=== PATIENT | female | born 1970 | race Native Hawaiian/Other Pacific Islander ===

== ENCOUNTER 2018-11-27 02:43 | Emergency (ER) | payer MEDICARE, SELFPAY ==
[2018-11-27] VITALS (9 sets, daily range): BP systolic 165–198; BP diastolic 90–112; PULSE 74–106; RESP 11–24; TEMP 36.2; O2SAT 96–99; BMI 26.4
--- NOTE | 2018-11-27 02:55 | DI.RAD.S_ITS ---
PROCEDURE: XR CHEST 1V INDICATIONS: chest pain TECHNIQUE: One view of the chest was acquired. COMPARISON: None. FINDINGS: Surgical changes and devices: None. Lungs and pleura: Lungs are clear. No pleural effusions or pneumothorax. Mediastinum: Mediastinal contours appear normal. Heart size is normal. Bones and chest wall: No suspicious bony lesions. Overlying soft tissues appear unremarkable. IMPRESSION: No acute disease. Dictated by: Noman Cordoba M.D. on 11/27/2018 at 8:51 Approved by: Noman Cordoba M.D. on 11/27/2018 at 8:51
[2018-11-27] MEDS: ASPIRIN 81 MG TAB 324 MG PO (03:02)
[2018-11-27] MEDS: NITROGLYCERIN 0.4 MG SL TAB SL ×2 (03:04→03:25)
[2018-11-27] MEDS: SODIUM CHLORIDE 0.9% 1,000 ML 150 ML IV (03:05)
--- NOTE | 2018-11-27 03:13 | ED_ITS ---
HPI - Chest Pain General Chief Complaint: Chest Pain Stated Complaint: states chest pain off and on, nausea for 8 eights Time Seen by Provider: 11/27/18 02:49 Source: patient Mode of arrival: ambulatory Limitations: no limitations History of Present Illness HPI narrative: 48-year-old female nonsmoker with history of hypertension diabetes presents with a chief complaint of chest pain which started while at rest earlier today, at about noon. She states that her pain is largely sharp and stabbing and made worse with palpation, range of motion or deep breaths. She has had nausea but denies any vomiting. She admits to some hacking cough but no fever. She has had the occasional chills, primarily when she is nauseated. She is not dizzy or weak or lightheaded. She denies any recent long distance travel, exposure to ill persons or similar circumstances. She was recently admitted at an outside facility for abdominal complaints MD complaint: chest pain Onset (ago): hour(s) Duration: intermittent Onset: during rest Pain location: left chest Severity: mild Severity scale (1-10): 4 Quality: sharp Relieving factors: rest Exacerbating factors: inspiration, palpation and movement Associated symptoms: nausea and cough Treatments prior to arrival chest pain: none Related Data On Oral Contraceptives: No Previous Rx's Medication Instructions Recorded hydrocodone-acetaminophen 1 tab PO Q4-6H PRN #10 tab 11/27/18 ondansetron 4 mg PO TID-QID PRN #10 tab 11/27/18 Allergies Allergy/AdvReac Type Severity Reaction Status Date / Time diphenhydramine Allergy Verified 11/27/18 02:57 [From Benadryl Allergy] Review of Systems Constitutional Reports chills, Denies fever(s), Denies lethargy and Denies weakness Eyes Denies change in vision, Denies eye discharge, Denies irritation and Denies loss of vision ENT Ears, Nose, Mouth, and Throat: Denies change in voice, Denies neck pain and Denies sore throat Cardiovascular Reports chest pain, Reports chest pain at rest, Denies irregular heart rhythm, Denies lightheadedness, Denies palpitations, Denies dyspnea, Denies dyspnea on exertion and Denies orthopnea Respiratory Reports cough, Reports pain on inspiration, Reports pain with cough, Denies dyspnea, Denies dyspnea on exertion and Denies wheezing Gastrointestinal Gastrointestinal: Denies abdominal pain, Denies change in bowel habits, Denies diarrhea, Reports nausea and Denies vomiting Genitourinary Denies hematuria, Denies flank pain, Denies urinary incontinence and Denies urinary urgency Musculoskeletal Denies neck pain Integumentary/Breasts Denies pruritus, Denies erythema, Denies rash and Denies wounds Neurologic Denies confusion, Denies loss of vision and Denies weakness Psychiatric Denies anxiety, Denies confusion, Denies depression, Denies homicidal ideation and Denies suicidal ideation Endocrine Denies palpitations Hematologic/Lymphatic Denies easy bruising Allergic/Immunologic Denies wheezing PFSH Social History Smoking Status: Never smoker Social History Smoking Status: Never smoker Exam Narrative Exam Narrative: GENERAL: 48-year-old female is resting comfortably, has a bronchospastic type cough which seems to exacerbate her symptoms, in mild distress HEAD: Atraumatic. Normocephalic. No temporal or scalp tenderness. EYES: Pupils equal round and reactive. Extraocular motions intact. No scleral icterus. No injection or drainage. ENT: Nose without bleeding, purulent drainage or septal hematoma. Throat without erythema, tonsillar hypertrophy or exudate. Uvula midline. Airway patent. NECK: Trachea midline. No JVD or lymphadenopathy. Supple, nontender, no meningeal signs. CARDIOVASCULAR: repeatable sharp and stabbing pain to palpation of left anterior chest. Regular rate and rhythm without murmurs, gallops, or rubs. RESPIRATORY: Clear to auscultation. Breath sounds equal bilaterally. No wheezes, rales, or rhonchi. GASTROINTESTINAL: Abdomen soft, epigastric pain, nondistended. No hepato- splenomegaly, or palpable masses. No guarding. EXTREMITIES: No clubbing, cyanosis, or edema. No joint tenderness, effusion, or edema noted. BACK: Nontender without deformity or crepitance. No flank tenderness. NEURO: AOx3. SKIN: No rash or erythema. Initial Vital Signs Initial Vital Signs: Vital Signs Temperature 97.2 F L 11/27/18 02:55 Pulse Rate 83 11/27/18 02:55 Respiratory Rate 11 L 11/27/18 02:55 Blood Pressure 198/98 H 11/27/18 02:55 Pulse Oximetry 99 11/27/18 02:55 Scores HEART Score Heart Score history: Slightly Suspicious Heart Score EKG: Normal Heart Score Age: 45-64 years old Heart Score risk factors: 1-2 risk factors Heart Score troponin: < or = to normal limit Heart Score Total: 2 Course Orders Ordered: ED Orders 11/27/18 02:55 XR chest 1V Stat EKG-12 Lead Stat 11/27/18 03:17 Complete Blood Count AUTO DIFF Stat Comprehensive Metabolic Panel Stat Lipase Stat Troponin & CK Cardiac Panel Stat 11/27/18 03:50 US abdomen complete Stat Sodium Chloride (Normal Saline 0.9%) 1,000 mls @ 150 mls/hr IV CONT JAILENE Last Admin: 11/27/18 03:05 Dose: 150 mls/hr Nitroglycerin (Nitrostat) 0.4 mg SL [id number] PRN PRN Reason: Chest Pain Last Admin: 11/27/18 03:25 Dose: 0.4 mg Admin: 11/27/18 03:04 Dose: 0.4 mg Discontinued Medications Hydrocodone Bitart/Acetaminophen (Vicodin Prepack) 1 bottle MISC SEEINSTR ONE Stop: 11/27/18 05:23 Aspirin (Aspirin Chew) 324 mg PO NOW ONE Stop: 11/27/18 02:56 Last Admin: 11/27/18 03:02 Dose: 324 mg Ketorolac Tromethamine (Toradol) 15 mg IV NOW ONE Stop: 11/27/18 03:41 Last Admin: 11/27/18 03:48 Dose: 15 mg Ondansetron HCl (Zofran) 4 mg IV NOW ONE Stop: 11/27/18 03:22 Last Admin: 11/27/18 03:24 Dose: 4 mg Ondansetron HCl (Zofran Odt Prepack) 1 bottle MISC SEEINSTR ONE Stop: 11/27/18 05:23 Vital Signs - 8 hr 11/27/18 02:55 11/27/18 03:04 11/27/18 03:25 Temperature 97.2 F L Pulse Rate 83 106 H 106 H Respiratory Rate 11 L Blood Pressure 198/98 H 186/112 H 181/100 H Blood Pressure [Left Arm] Pulse Oximetry 99 11/27/18 03:27 11/27/18 04:00 11/27/18 04:31 Temperature Pulse Rate 99 H 87 85 Respiratory Rate 16 23 Blood Pressure 166/104 H Blood Pressure [Left Arm] 172/93 H 189/107 H Pulse Oximetry 99 99 11/27/18 05:01 Temperature Pulse Rate 82 Respiratory Rate 24 Blood Pressure Blood Pressure [Left Arm] 196/101 H Pulse Oximetry 96 MDM - Chest Pain Medical Records Data Attestation: I reviewed the patient's medical records. Lab Data Result diagrams: 11/27/18 03:17 11/27/18 03:17 Lab Results 11/27/18 11/27/18 Range/Units 03:17 03:17 WBC 10.1 (4.5-11.0) X10^3/uL RBC 4.70 (4.0-5.2) X10^6/uL Hgb 14.4 (12.0-16.0) g/dL Hct 42.3 (36-46) % MCV 90.1 (80-100) fL MCH 30.6 (26-34) PG MCHC 34.0 (30-36) % RDW 13.1 (11.6-14.8) % Plt Count 304 (150-400) X10^3/uL Neut % (Auto) 67.2 (50-75) % Lymph % (Auto) 24.6 L (25-40) % Treasure % (Auto) 3.6 (3-14) % Eos % (Auto) 3.5 (2-4) % Baso % (Auto) 1.1 (0-2) % Neut # (Auto) 6800 (9558-5754) /uL Lymph # (Auto) 2500 (2700-5736) /uL Treasure # (Auto) 400 (0-900) /uL Eos # (Auto) 400 (0-450) /uL Baso # (Auto) 100 (0-100) /uL Sodium 139 (137-145) mmol/L Potassium 3.5 (3.4-5.1) mmol/L Chloride 105 (98-107) mmol/L Carbon Dioxide 22 (22-32) mmol/L BUN 16 (7-17) mg/dL Creatinine 0.60 (0.52-1.04) mg/dL Estimated GFR > 60.0 (>60) mL/min BUN/Creatinine Ratio 26.7 H (6-22) Glucose 231 H (70-100) mg/dL Calcium 9.1 (8.4-10.2) mg/dL Total Bilirubin 0.7 (0.2-1.3) mg/dL AST 69 H (14-36) IU/L ALT 165 H (9-52) IU/L Alkaline Phosphatase 141 H (38-126) U/L Total Creatine Kinase < 20 L (30-135) U/L CK-MB (CK-2) TNP CK-MB (CK-2) Rel Index TNP Troponin I < 0.012 (0.01-0.034) ng/mL Total Protein 7.7 (6.3-8.2) g/dL Albumin 4.3 (3.5-5.0) g/dL Globulin 3.4 (1.7-4.1) g/dL Albumin/Globulin Ratio 1.3 (1.0-2.8) Lipase 428 H (23-300) U/L ECG Data Attestation: I personally reviewed and interpreted this ECG as follows: Prior ECG tracings: not available for review Interpretation: EKG is normal sinus rhythm rate [81 ] and free of any signs of ischemia or ectopy. No ST segmental elevation or depression. No T wave inversions MDM Narrative Medical decision making narrative: Patient presents with sharp and stabbing anterior chest and upper abdomen pain that radiates to her back. She has not had much of an appetite and has felt nauseated. Her EKG is unremarkable, story is of a nonischemic picture and troponin is unremarkable over 12 hr into the episode. Cardiac etiology considered but thought much less likely. The patient has elevated lipase but not to the level that would suggest admission is warranted. Additionally there are stones noted on ultrasound but no indication coli cystitis which would require surgical intervention. I spent a significant amount of time at the bedside discussing return precautions, lab findings, imaging findings and likely causes of the patient's symptoms. She has had her questions answered to her apparent satisfaction. She understands her diagnosis and how to proceed. Discharge Plan Departure Patient Disposition: Home Clinical Impression: Biliary colic Acute pancreatitis Qualifiers: Pancreatitis type: other Acute pancreatitis complication: unspecified Qualified Code(s): K85.80 - Other acute pancreatitis without necrosis or infection Instructions: Acute Pancreatitis, DI for Atypical Chest Pain, DI for Biliary Colic Activity Restrictions/Additional Instructions: *You have been diagnosed with [ atypical chest pain, mild pancreatitis, gallstones ] *What to do: *Take medications as directed *Follow up with your primary care provider in 2-3 days, call for an appointment. Let them know you were seen in the Emergency Department and that we ask that you be seen in follow up *Return to ER if you should have any new, worsening or concerning symptoms 1. Drink plenty of fluids with frequent small sips. 2. For the next 24 hours a clear liquid diet is advised. After that please employ a brat diet which would include bananas, rice, apples, toast. Prescriptions: New hydrocodone-acetaminophen 5-325 mg tablet 1 tab PO Q4-6H PRN (Reason: pain) Qty: 10 RF: 0 ondansetron 4 mg tablet,disintegrating 4 mg PO TID-QID PRN (Reason: nausea and vomiting) Qty: 10 RF: 0 Referrals: Shyann Pereira MD [Physician] -
[2018-11-27] MEDS: ONDANSETRON 4 MG/2 ML INJ IV (03:24)
[2018-11-27 03:27] LABS: Add Manual Diff / Slide Review NO; Basophils Absolute Auto 100 /uL (0-100); Basophils Percent Auto 1.1 % (0-2); Eosinophils Absolute Auto 400 /uL (0-450); Eosinophils Percent Auto 3.5 % (2-4); Hematocrit 42.3 % (36-46); Hemoglobin 14.4 g/dL (12.0-16.0); Lymphocytes Absolute Auto 2500 /uL (1100-4500); Lymphocytes Percent Auto 24.6 % (25-40); Mean Corpuscular Hemoglobin 30.6 PG (26-34); Mean Corpuscular Volume 90.1 fL (80-100); Monocytes Absolute Auto 400 /uL (0-900); Monocytes Percent Auto 3.6 % (3-14); Neutrophils Absolute Auto 6800 /uL (1500-7000); Neutrophils Percent Auto 67.2 % (50-75); Platelet Count 304 X10^3/uL (150-400); Red Cell Distribution Width 13.1 % (11.6-14.8); White Blood Cell Count 10.1 X10^3/uL (4.5-11.0)
--- NOTE | 2018-11-27 03:37 | PC.NURSE ---
provider notified of no change of patient condition after nitro x2. Provider aknowledged, order to hold 3rd nitro.
[2018-11-27 03:40] LABS: Alanine Aminotransferase 165 IU/L (9-52); Albumin 4.3 g/dL (3.5-5.0); Albumin Globulin Ratio 1.3 (1.0-2.8); Alkaline Phosphatase 141 U/L (38-126); Aspartate Aminotransferase 69 IU/L (14-36); BUN Creatinine Ratio 26.7 (6-22); Bilirubin Total 0.7 mg/dL (0.2-1.3); Blood Urea Nitrogen 16 mg/dL (7-17); Calcium 9.1 mg/dL (8.4-10.2); Carbon Dioxide 22 mmol/L (22-32); Chloride 105 mmol/L (98-107); Creatine Kinase < 20 U/L (30-135); Estimated Glomerular Filt Rate > 60.0 mL/min (>60); Globulin 3.4 g/dL (1.7-4.1); Glucose 231 mg/dL (70-100); HEMOLYSIS < 15 (0-50); Lipase 428 U/L (23-300); Potassium 3.5 mmol/L (3.4-5.1); Sodium 139 mmol/L (137-145); Total Protein 7.7 g/dL (6.3-8.2)
[2018-11-27] MEDS: KETOROLAC 60 MG/2 ML VIAL 15 MG IV (03:48)
--- NOTE | 2018-11-27 03:50 | DI.US.S_ITS ---
PROCEDURE: US ABDOMEN COMPLETE INDICATIONS: EPIGASTRIC PAIN, ELEVATED ENZYMES TECHNIQUE: Real-time scanning was performed of the abdominal and retroperitoneal organs, with image documentation. COMPARISON: None. FINDINGS: Liver: Liver is normal in size and homogeneous in echotexture. Liver has a diffusely increased echotexture which typically represents fatty infiltration; however, finding is nonspecific and other etiologies including hepatic cirrhosis can have a similar appearance. Please correlate with clinical and laboratory findings. There is a hypoechoic area in the liver adjacent to the gallbladder that measures 1.9 x 0.6 x 1.3 cm which may represent focal fatty sparing. Gallbladder: 1.4 x 1.2 x 1.3 cm mobile gallstone noted in the gallbladder lumen. No gallbladder wall thickening with wall measuring 2 mm. No pericholecystic fluid. No sonographic Torres sign. Biliary ducts: Intrahepatic bile ducts are non-dilated. Extrahepatic bile duct caliber measures 4.0 mm. Normal is 6-7 mm or less in diameter, or 10 mm or less post-cholecystectomy. Pancreas: Tail of the pancreas is obscured by bowel gas and cannot be evaluated. Visualized pancreas is slightly echogenic possibly representing pancreatitis. Spleen: Spleen is normal in size and homogeneous in echotexture. Splenic cysts are noted. Kidneys: Kidneys are normal in size and echotexture. Right kidney measures 9.9 cm long; left kidney measures 11.9 cm long. No hydronephrosis or nephrolithiasis. No solid masses. Inferior pole of the left kidney is obscured by bowel gas and cannot be evaluated. Aorta: Visualized aorta is normal in caliber at less than 3 cm. Iliacs: Proximal common iliac arteries are normal in caliber at less than 2.5 cm. IVC: Intrahepatic inferior vena cava is patent. Miscellaneous: No free abdominal fluid. IMPRESSION: 1. Hepatic steatosis. 2. Cholelithiasis without sonographic evidence of cholecystitis. 3. Slightly echogenic pancreas which is nonspecific finding which could be related to fatty atrophy versus pancreatitis. Recommend correlation with laboratory data. 4. Splenic cysts. Dictated by: Nahomi Espinal MD, PhD on 11/27/2018 at 8:45 Approved by: Nahomi Espinal MD, PhD on 11/27/2018 at 8:53
[2018-11-27 03:52] LABS: Troponin I < 0.012 ng/mL (0.01-0.034)
[2018-11-27] MEDS: ONDANSETRON 4 MG ODT PREPACK 1 BOTTLE MISC (05:40)
[2018-11-27] MEDS: HYDROCODONE/ACET 5/325 PREPACK 1 BOTTLE MISC (05:40)
== END 2018-11-27 05:49 | disposition home or self-care (01) ==
PROVIDERS: Emergency Provider Emergency Medicine
DX: K80.50 Calculus of bile duct without cholangitis or cholecystitis without obstruction (principal); K85.80 Other acute pancreatitis without necrosis or infection
CPT/HCPCS: 36591; 71045; 76700; 80053; 82550; 83690; 84484; 85025; 93005; 96361; 96374; 96375; 99283; 99285; J1885; J2405